=== PATIENT | female | born 1980 | race Caucasian/White ===

== ENCOUNTER 2017-09-29 09:44 | Emergency (ER) | END 2017-09-29 12:59 | disposition home or self-care (01) ==

== ENCOUNTER 2018-03-11 19:46 | Outpatient (CLI) | END 2018-03-11 23:00 | disposition home or self-care (01) ==

== ENCOUNTER 2018-06-12 11:47 | Inpatient (IN) | payer OTHER ==
[~2018-06-12] VITALS: Ht 160 cm; Wt 92.0 kg
[~2018-06-12 11:47] MED LIST: CALC500T PO; FERR-31 PO; FOLI-49 PO; PREN-29 PO
[2018-06-12] MEDS ORDERED: LACTATED RINGER'S 1,000 ML IV SCH ×2 (11:53→12:56)
[2018-06-12 11:55] VITALS: Ht 160 cm; Wt 92.0 kg
[2018-06-12] MEDS ORDERED: OXYTOCIN 30 UNITS/LR 500 ML IV SCH ×4 (12:00→16:05)
[2018-06-12] MEDS ORDERED: CARBOPROST 250 MCG INJ IM PRN ×2 (12:00→16:30)
[2018-06-12] MEDS ORDERED: METHYLERGONOVINE 0.2 MG INJ IM PRN ×2 (12:00→16:30)
[2018-06-12] MEDS ORDERED: MISOPROSTOL 50 MCG CAPSULE VAG ONE (12:00)
[2018-06-12] MEDS ORDERED: IBUPROFEN 600 MG TAB PO PRN (12:00)
[2018-06-12] MEDS ORDERED: OXYTOCIN 30 UNITS/LR 500 ML IV PRN ×2 (12:00→16:30)
[2018-06-12] MEDS ORDERED: MISOPROSTOL 200 MCG TAB PR PRN ×2 (12:00→16:30)
[2018-06-12] MEDS ORDERED: LIDOCAINE 1% (MPF) 30 ML INJ INJ PRN (12:00)
[2018-06-12 12:40] VITALS: BP 157/89; PULSE 84; RESP 18
[2018-06-12] MEDS ORDERED: MAGNESIUM SULFATE 20 GM/500 ML 500 ML IV SCH (12:56)
[2018-06-12] MEDS ORDERED: CA GLUCONATE (GM) 10% 10ML INJ IV PRN ×2 (13:00→16:30)
[2018-06-12] MEDS ORDERED: MAGNESIUM SULFATE 4 GM/100 ML 100 ML IV SCH ×2 (13:00→16:30)
--- NOTE | 2018-06-12 16:05 | LDN ---
Date/Time of Note Date/Time of Note DATE: 06/12/18 TIME: 16:03 Delivery Summary Weeks of Gestation 39 Placenta Delivered: Spontaneously Meconium: none Episiotomy: No Perineal laceration: 1 Laceration repair: 1st degree peneal laceratio repair Anesthesia type: Local Estimated blood loss: 150 Sponge & Needle done & correct: Yes All needle counts correct: Yes Any foreign bodies felt in the: No Delivery Information Sex Infant Sex: male Apgars 1 Minute: 8 5 Minute: 9 Suctioning Nose & mouth suctioned at santi: No Delee suction performed: No Umbilical Cord Umbilical cord with: 3 Vessels Cord presentations: no nuchal cord Cord Blood was obtained: Yes YASEMIN PENALOZA MD Jun 12, 2018 16:05
[2018-06-12] MEDS ORDERED: WITCH HAZEL/GLYCERIN PAD PR PRN (16:30)
[2018-06-12] MEDS ORDERED: NACL 0.9% 3 ML SYG IV SCH ×2 (16:30)
[2018-06-12] MEDS ORDERED: OXYCODONE/ASPIRIN (4.88/325) TAB PO PRN (16:30)
[2018-06-12] MEDS ORDERED: LANOLIN HPA 1 PKT TOP PRN (16:30)
[2018-06-12] MEDS ORDERED: BENZOCAINE 20% 56 ML SPRAY TOP PRN (16:30)
[2018-06-12] MEDS ORDERED: ONDANSETRON 4 MG INJ IV PRN (16:30)
[2018-06-12] MEDS ORDERED: ACETAMINOPHEN 325 MG TAB PO PRN (16:30)
--- NOTE | 2018-06-12 16:42 | PREOPHP ---
DATE OF ADMISSION: 06/12/2018 HISTORY OF PRESENT ILLNESS: Ms. Candice Zapien is a 37-year-old 8, para 2, EDC 9 intrauterine at 39 weeks and 1 day gestational age, was sent from clinic for elevated blo od pressure. The patient was seen and evaluated to be in labor. She denies any headache, nausea, vo miting, shortness of breath or visual changes. She was started on magnesium sulfate for seizure prop hylaxis. PAST MEDICAL HISTORY: None. MEDICATIONS: vitamins. PAST SURGICAL HISTORY: History of exploratory laparotomy secondary to ectopic . OBSTETRICAL HISTORY: x3 missed AB, 1 demise, 1 ectopic, 2 vaginal deliveries. GYNECOLOGIC HISTORY: 11, regular 3 to 4 days. Denies any sexually transmitted disease. Sexually ac tive with 1 partner. SOCIAL HISTORY: Denies any smoking, drugs or alcohol. FAMILY HISTORY: None. REVIEW OF SYSTEMS: All within normal except history of present illness. PHYSICAL EXAMINATION: HEENT: Within normal. LUNGS: CTA bilateral. CARDIOVASCULAR: S1, S2. Regular rate, rhythm. ABDOMEN: Gravid, nontender. Negative CVA bilateral. EXTREMITIES: Negative. No calf tenderness. PELVIC: Vaginal exam: 5 cm, 80%, -2 station, artificial rupture of membrane clear. heart tra cing category 1. [place]: Regular contractions. ASSESSMENT: 1. Intrauterine at 39 weeks and 1 day gestational age. 2. Gestational hypertension. 3. Advanced maternal age, in labor. PLAN: Admit the patient for anticipated vaginal delivery. Seizure prophylaxis with magnesium sulfat e. Dictated By: YASEMIN MUSA/SANTINO Conf#: [id number] DID#: [id number]
[2018-06-12] MEDS ORDERED: LABETALOL HCL 20MG INJ IV ONE (17:30)
[2018-06-12] MEDS: IBUPROFEN 600 MG TAB PO SCH ×2 (17:53→23:45)
[2018-06-12 20:00] VITALS: BP 142/88; PULSE 85; RESP 20
[2018-06-12 21:00] VITALS: BP 122/71; PULSE 84; RESP 18
[2018-06-12 22:00] VITALS: BP 129/80; PULSE 89; RESP 20
[2018-06-12] MEDS: MAGNESIUM SULFATE 20 GM/500 ML 500 ML IV SCH (22:53)
[2018-06-12] MEDS: SENNA/DOCUSATE NA (8.6MG/50MG) TAB PO SCH (22:55)
[2018-06-12 23:00] VITALS: BP 144/64; PULSE 94; RESP 20
[2018-06-13] VITALS (13 sets, daily range): BP systolic 117–139; BP diastolic 64–88; PULSE 74–99; RESP 18–20
[2018-06-13] MEDS: MAGNESIUM SULFATE 20 GM/500 ML 500 ML IV SCH ×2 (02:05→09:45)
[2018-06-13] MEDS: OXYCODONE/ASPIRIN (4.88/325) TAB PO PRN ×2 (03:03→11:30)
[2018-06-13] MEDS: LACTATED RINGER'S 1,000 ML IV SCH ×2 (05:21→17:33)
[2018-06-13] MEDS: IBUPROFEN 600 MG TAB PO SCH ×3 (06:40→17:32)
[2018-06-13] MEDS: SENNA/DOCUSATE NA (8.6MG/50MG) TAB PO SCH ×2 (09:46→21:25)
--- NOTE | 2018-06-13 11:12 | DS ---
Date/Time of Note Date/Time of Note DATE: 06/13/18 TIME: 11:12 Obstetrical Discharge Record Final Diagnosis Final Diagnosis: Term delivered Vaginal Delivery Obstetrical Delivery: Spontaneous Complications Preg induced Hypertension Augmentation: No Induction: No Condition on Discharge Physical Assessment Voiding: Yes Bowel Movement: Yes Breast: Soft, non-tender, Filling Fundus: Firm Abdomen and Incision: no epigastric tenderness Calf Tenderness: No Patient Condition: Fair YASEMIN PENALOAZ MD Jun 13, 2018 11:12
--- NOTE | 2018-06-13 11:14 | PD.PPDC ---
[employer]AM[employer] TE[employer]ER Discharge Instruction Condition [id number] Patient Condition: Tgjnh2e Fair Diet [id number] Diet: Zgmih2s Special Diet (low sodium) Activity/Restrictions [id number] Activity: Habro3a Normal Activity May Shower [id number] Restrictions: [id number] No Exercising No Lifting No Driving No Sexual Activity Nothing in the Vagina No [place] No Tampons, douche Follow-up Follow-up with Physician: 1, Week/Weeks Provider Information: blood pressure check Return to clinic for [id number] SUPPORT Instructions: Csiax9h Fever greater than 101 Chills Worsening abdominal pain Excessive Vaginal Bleeding More than 2 pads per hour Unable to tolerate diet [id number] OB Instructions: [id number] Breast Tenderness Depression Blurried Vision Headache Comment: preeclamptic precautions [id number] Surgical Instructions: Pdyri4e Incisional Drainage Incisional Redness YASEMIN PENALOZA MD Jun 13, 2018 11:14
[2018-06-14 04:10] VITALS: BP 131/67; PULSE 61; RESP 18
[2018-06-14] MEDS: IBUPROFEN 600 MG TAB PO SCH ×2 (06:00)
[2018-06-14 08:30] VITALS: BP 136/75; PULSE 91; RESP 19
[2018-06-14] MEDS ORDERED: DIPHTH/TET/ACEL PERTUSS (ADULT) 0.5 ML VIAL IM* ONE (11:42)
== END 2018-06-14 15:17 | disposition home or self-care (01) | DRG 807 ==
LOC: L-D 11:47 → PP1 20:19 → EDSTATUS 06-18 11:42
PROVIDERS: ADMIT Obstetrics & Gynecology; ATTEND Obstetrics & Gynecology
PROC: 10E0XZZ Delivery of Products of Conception, External Approach (ICD-10-PCS; principal; 2018-06-12)
PROC: 0HQ9XZZ Repair Perineum Skin, External Approach (ICD-10-PCS; 2018-06-12)
DX: O13.4 Gestational [pregnancy-induced] hypertension without significant proteinuria, complicating childbirth (principal); Z37.0 Single live birth; O70.0 First degree perineal laceration during delivery; Z3A.39 39 weeks gestation of pregnancy
CPT/HCPCS: 80053; 81001; 83735; 84560; 85025; 85384; 85610; 85730; 86592; 86850; 86900; 86901; 87340; 90686; J2590; J3475; J7120